=== PATIENT | female | born 1990 | race Caucasian/White ===

== ENCOUNTER 2017-06-05 15:22 | Emergency (ER) | payer BC ==
[~2017-06-05] VITALS: Ht 160 cm; Wt 72.0 kg
[~2017-06-05 15:22] MED LIST: HYDR25R PR; IBUP800T23 PO; POLY119S PO; TRAM50 PO; Z.0.BCPILL PO
[2017-06-05 15:40] VITALS: BP 126/84; PULSE 106; RESP 16; TEMP 100; O2SAT 96
[2017-06-05] MEDS ORDERED: IBUPROFEN 800 MG TAB PO ONE (16:30)
--- NOTE | 2017-06-05 16:31 | PD ---
HPI Chief Complaint: Cold / Flu Symptoms Time Seen by Provider: 16:24 Travel History International Travel<30 days: No Contact w/Intl Traveler<30days: No Traveled to known affect area: No History of Present Illness HPI 26-year-old female with one week history of cough, congestion, fevers, chills, myalgias, now developing left ear pain. Symptoms moderate, no aggravating or relieving factors. Her boyfriend has similar symptoms. Denies abdominal pain, dysuria, flank pain, rash, recent travel, IV drug use. No other complaints at this time. PFSH Past Medical History ?: Not LMP: 3 WEEKS Social History Alcohol Use: Yes (occasionally on weekends) Tobacco Use: Yes (/2 ppd ) Substance Use: Yes (marijuana ) Allergies-Medications (Allergen,Severity, Reaction): Coded Allergies: No Known Allergies (Unverified Adverse Reaction, Unknown, 06/05/17) Reported Meds & Prescriptions Reported Meds & Active Scripts Active Flonase Nasal Otto (Fluticasone Nasal Otto) 50 Mcg/Act Otto 100 Mcg EACH NARE BID 10 Days Amoxicillin 875 Mg Tab 875 Mg PO BID 10 Days Miralax 119 Gm Bottle (Polyethylene Glycol) 119 Gm Powd 17 Gm PO DAILY 7 Days 17 GRAMS = 1 TABLESPOON DISSOLVED IN 4 TO 8 OUNCES OF BEVERAGE Ultram (Tramadol HCl) 50 Mg Tab 50 Mg PO Q6H PRN FOR PAIN Anusol-Hc (Hydrocortisone Acetate) 25 Mg Sup 25 Mg WA BID Ibuprofen 800 Mg Tab 800 Mg PO Q8HR PRN Reported Control Pills (Miscellaneous Medication) Tab 1 Tab PO DAILY Review of Systems Except as stated in HPI: all other systems reviewed are Neg Physical Exam Narrative GENERAL: Well-nourished female in no acute distress SKIN: Warm and dry. HEAD: Atraumatic. Normocephalic. EYES: Pupils equal and round. No scleral icterus. No injection or drainage. ENT: No nasal bleeding or discharge. Mucous membranes pink and moist. Left tympanic membranes bulging and erythematous. Right tympanic membrane has air- fluid levels and no erythema. NECK: Trachea midline. No JVD. No lymphadenopathy CARDIOVASCULAR: Regular rate and rhythm. No murmur appreciated. RESPIRATORY: No accessory muscle use. Clear to auscultation. Breath sounds equal bilaterally. GASTROINTESTINAL: Abdomen soft, non-tender, nondistended. Hepatic and splenic margins not palpable. MUSCULOSKELETAL: No obvious deformities. No clubbing. No cyanosis. No edema. NEUROLOGICAL: Awake and alert. No obvious cranial nerve deficits. Motor grossly within normal limits. Normal speech. PSYCHIATRIC: Appropriate mood and affect; insight and judgment normal. Data Data Last Documented VS Vital Signs Date Time Temp Pulse Resp B/P (MAP) Pulse Ox O2 Delivery O2 Flow Rate FiO2 06/05/17 16:45 Room Air 06/05/17 15:40 100.0 106 16 126/84 (98) 96 Orders Orders Influenzae A/B Antigen (06/05/17 16:29) Ibuprofen (Motrin) (06/05/17 16:30) MDM Medical Decision Making Medical Screen Exam Complete: Yes Emergency Medical Condition: Yes Medical Record Reviewed: Yes Differential Diagnosis Influenza, sinusitis, otitis media, pneumonia, bronchitis Narrative Course The patient has evidence of left otitis media. She also has an upper respiratory infection which is likely viral. The patient will be given ibuprofen for low-grade fever. Influenza antigen negative. The patient is being discharged with amoxicillin and Flonase for her left otitis media. Diagnosis Primary Impression: Left otitis media Additional Impression: Upper respiratory infection Additional Instructions: Medication as prescribed. Stay well hydrated and well-nourished. Take Tylenol or Motrin for fever per dosing instructions on bottle. Follow-up with primary care physician as needed. Return for any emergent medical conditions. Med/Other Pt SpecificInfo: Prescription(s) given Scripts Fluticasone Nasal Otto (Flonase Nasal Otto) 50 Mcg/Act Otto 100 MCG EACH NARE BID for Allergies for 10 Days, #1 BOTTLE 0 Refills Prov: Satya Harrison MD 06/05/17 Amoxicillin (Amoxicillin) 875 Mg Tab 875 MG PO BID for Infection for 10 Days, #20 TAB 0 Refills Prov: Satya Harrison MD 06/05/17 Disposition: 01 DISCHARGE HOME Condition: Stable Lalo Romero Jun 05, 2017 16:31
[2017-06-05] MEDS ORDERED: AMOX875T PO (17:19)
[2017-06-05] MEDS ORDERED: FLUT1SPR5 EACH NARE (17:20)
== END 2017-06-05 17:28 | disposition home or self-care (01) ==
LOC: PHEFT 15:22
DX: H66.92 Otitis media, unspecified, left ear (principal); J06.9 Acute upper respiratory infection, unspecified; F17.210 Nicotine dependence, cigarettes, uncomplicated; Z79.899 Other long term (current) drug therapy
CPT/HCPCS: 87804; 99283